=== PATIENT | male | born 1950 | race Caucasian/White ===

== ENCOUNTER 2020-02-15 16:46 | Inpatient (IN) | payer MEDICARE, OTHER, SELFPAY ==
[2020-02-15] VITALS (11 sets, daily range): BP systolic 131–191; BP diastolic 79–102; PULSE 65–79; RESP 13–21; TEMP 35.4–36.7; O2SAT 96–100; BMI 28.3; BMI 27.8; BMI 27.9
[2020-02-15 16:55] LABS: Bedside Glucose 139 mg/dL (70-110)
--- NOTE | 2020-02-15 16:55 | CT_ITS ---
We are attempting to reach an attending provider to discuss findings. An addendum with communication details will be sent when the communication is complete. STUDY: CT BRAIN WITHOUT CONTRAST REASON FOR EXAM: Male, 69 years old. STROKE PROTOCAL -- LEFT SIDE WEAKNESS -- RECENT SHOULDER SURG RADIATION DOSAGE (If Supplied By Facility): CTDIvol = ( 44.99 ) mGy, DLP = ( 819.81 ) mGycm TECHNIQUE: Transaxial CT imaging of the brain was performed without administration of intravenous contrast material. Individualized dose optimization techniques were used for this CT. COMPARISON: No relevant priors. FINDINGS: Normal soft tissue structures. Normal calvarium. There is moderate cerebral atrophy with widening of the extra-axial spaces and ventricular dilatation. There are areas of decreased attenuation within the white matter tracts of the supratentorial brain, consistent with microvascular disease changes. Normal basal ganglia and thalami. Normal brainstem. Normal cerebellum. There is no intracranial hemorrhage. There are no findings of an acute ischemic infarction. Normal visualized paranasal sinuses. CT/Brain/Head without Contrast IMPRESSION: Chronic involutional changes of the brain. Electronically Signed: Sebastian Victoria MD at 17:19 EDT , Service support ,
--- NOTE | 2020-02-15 16:55 | CT_ITS ---
STUDY: CTA HEAD AND NECK WITH CONTRAST REASON FOR EXAM: Male, 69 years old. STROKE PROTOCAL -- LEFT SIDE WEAKNESS, RECENT SHOULDER SURG RADIATION DOSAGE (If Supplied By Facility): CTDIvol = ( 26.31 ) mGy, DLP = ( 819.81 ) mGycm TECHNIQUE: CT angiography was performed with a multi-detector CT scanner. Data acquisition was obtained from the skull base through the vertex following intravenous administration of 100CC ISOVUE 370. MIP images were reconstructed from the axial data set. Post-processing of the angiographic images was performed, with multiplanar reformation and 3D reconstruction. Individualized dose optimization techniques were used for this CT. COMPARISON: Noncontrast CT brain from today FINDINGS: Normal bilateral petrous carotid arteries. Normal right cavernous carotid artery with a normal supraclinoid bifurcation. Normal left cavernous carotid artery with a normal supraclinoid bifurcation. Normal right A1 segments of the anterior cerebral artery. Normal left A1 segments of the anterior cerebral artery. Normal intact anterior communicating artery (ACOM). Normal bilateral A2 segments of the anterior cerebral arteries. Normal right M1 and M2 segments of the middle cerebral arteries, with a normal M1 bifurcation. Normal left M1 and M2 segments of the middle cerebral arteries, with a normal M1 bifurcation. There is non-visualization of the right posterior communicating artery (PCOM). There is non-visualization of the left posterior communicating artery (PCOM). Normal bilateral vertebral arteries. Normal basilar artery with a normal basilar bifurcation. The visualized bilateral superior cerebellar (SCA) arteries are normal. Normal bilateral P1, P2 and visualized P3 segments of the posterior cerebral arteries. There is no demonstrated aneurysm of the [place]. There is no demonstrated abnormality of the visualized brain. AORTIC ARCH: Normal visualized aortic arch. Normal origins of the brachiocephalic, left common carotid, and left subclavian arteries. RIGHT CAROTID ARTERIES: Normal right common carotid artery (CCA). Normal right common carotid bulb. Normal origin of the right internal carotid (ICA) artery without a hemodynamically significant stenosis. Normal visualized cervical portion of the right internal carotid artery. Normal origin of the right external carotid artery (ECA). LEFT CAROTID ARTERIES: Normal left common carotid artery (CCA). Normal left common carotid bulb. Normal origin of the left internal carotid (ICA) artery without a hemodynamically significant stenosis. Normal visualized cervical portion of the left internal carotid artery. Normal origin of the left external carotid artery (ECA). VERTEBRAL ARTERIES: Normal bilateral vertebral arteries. CT/CTA Head AND Neck W/ Contrast IMPRESSION: Normal CTA Head and neck with contrast. N.B. : The above information has been verbally conveyed by Sebastian Victoria MD to Dr. Donny Mullins DO, on 02/15/2020 17:31:04 (ET). Electronically Signed: Sebastian Victoria MD at 17:32 EDT , Service support ,
--- NOTE | 2020-02-15 17:08 | CM.ED ---
SOCIAL WORK Responded to Stroke Alert. Patient in room with Dr. Mullins. This worker to remain available for needs. Shanna Aguilera, MORTGAGE LENDER, FLOOR DIRECTOR
--- NOTE | 2020-02-15 17:18 | EKG12_ITS ---
Test Reason : STROKE ALERT Blood Pressure : / mmHG Vent. Rate : 068 BPM Atrial Rate : 068 BPM P-R Int : 336 ms QRS Dur : 090 ms QT Int : 400 ms P-R-T Axes : 058 -43 018 degrees QTc Int : 425 ms Sinus rhythm with 1st degree A-V block Left axis deviation Low voltage QRS Septal infarct , age undetermined Abnormal ECG Confirmed by SAVI GONZALEZ, SUMA ([id number]), senior technical editor NEETA GUTHRIE ([id number]) on 02/18/2020 9:29:40 AM Referred By: IZZY Confirmed By:SUMA HOU MD
[2020-02-15 17:30] LABS: Absolute Lymphocyte Count 2.45 X10^3/uL (0.83-4.51); Absolute Neutrophil Count 4.8 X10^3/uL (2.0-7.7); Basophil# 0.03 X10^3/uL; Basophil% 0.4 % (0-1); Eosinophil# 0.58 X10^3/uL; Eosinophils% 6.8 % (0-5); Hematocrit 38.6 % (40-54); Hemoglobin 12.6 g/dL (13.0-16.5); Lymphocyte # 2.45 X10^3/ul (4.0); Lymphocyte % 28.9 % (19-41); Mean Corp Hgb Conc 32.6 g/dL (32-36); Mean Corpuscular Hgb 31.7 pg (27.0-32.0); Mean Platelet Vol. 9.7 fl (6.2-12.0); Monocyte# 0.65 X10^3/uL; Monocyte% 7.7 % (0-10); NRBC Flagged by Analyzer 0 % (0-5); Neutrophil # 4.75 X10^3/uL (2.7-7.7); Platelet Count 287 K/mm3 (150-450); RBC Distribution Width CV 12.5 % (11.6-14.6); RBC Distribution Width SD 43.9 fl (35.1-43.9); Red Blood Count 3.98 M/mm3 (4.6-6.2); White Blood Count 8.5 K/mm3 (4.4-11.0)
--- NOTE | 2020-02-15 17:30 | RAD_ITS ---
STUDY: X-RAY CHEST REASON FOR EXAM: Male, 69 years old. SLURRED SPEECH AT 1530, WEAKNESS TECHNIQUE: Single frontal view of the chest. COMPARISON: None. FINDINGS: The lungs are clear and expanded. There is no demonstrated pleural abnormality. Normal size heart. Normal mediastinum and tina. Normal visualized pulmonary arteries. Normal visualized aortic arch and descending thoracic aorta. Normal visualized thoracic spine. Normal visualized ribs, clavicles, and shoulders. 2 metallic screws transfix the left glenoid. There is no demonstrated abnormality of the visualized soft tissue structures of the upper abdomen. RAD/Chest 1 View IMPRESSION: Normal x-ray examination of the chest. Electronically Signed: Sebastian Victoria MD at 18:26 EDT , Service support ,
[2020-02-15 17:34] LABS: International Normalized Ratio 1.1; Prothrombin Time (Protime)PT. 13.9 SECONDS (11.7-14.9)
[2020-02-15 17:35] LABS: Partial Thromboplast Time 24.8 Seconds (24.1-36.2)
[2020-02-15 17:40] LABS: Anion Gap 5 (5-15); BUN 13 mg/dL (7-18); BUN/Creat Ratio 13.3 RATIO (10-20); Calcium,Total 9.2 mg/dL (8.5-10.1); Chloride 111 mmol/L (98-107); Creatinine, Serum 0.98 mg/dL (0.70-1.30); EST Glomerular Filtration Rate 81 mL/min (>60); Est Glom Filt Rate - Afr Amer 98 mL/min (>60); Estimated Creatinine Clearance 88.57 ml/min; Glucose 145 mg/dL (74-106); Potassium 3.8 mmol/L (3.5-5.1); Sodium Level 141 mmol/L (136-145)
--- NOTE | 2020-02-15 17:54 | ED.VISSUMM ---
- ER Visit Summary Date of Service: 02/15/20 Chief Complaint: Slurred speech History of Present Illness: The patient is a 69 M who presents with slurred speech that began today. Patient noticed his speech getting slurred approximately 1-1/2 hours prior to arrival. Patient denies any weakness or paresthesias in his extremities. Patient denies any difficulty walking. Patient does admit to a decreased appetite but denies any nausea or vomiting. Patient denies any headache or chest pain. Patient denies any difficulty swallowing. Physical Examination: Vital signs are stable except for an elevated blood pressure of 191/102.. Patient is afebrile. Patient is in no acute distress. Oral mucosa is pink and moist. Neck is supple. Trachea is midline. There is no JVD. Heart was regular rate and rhythm. Lungs are clear and equal bilaterally. Abdomen is soft and nontender. Strength is 5/5 bilateral in the upper and lower extremities. [id number] is intact. Other than slurring of his speech, cranial nerves II through XII are intact. Extremities are intact. There is no calf tenderness or edema. Test Results: CT scan of the brain was obtained and was within normal limits. CTA of the head neck was obtained and was within normal limits. Portable chest x-ray was obtained. There is no acute cardiopulmonary process. These were interpreted by the radiologist and reviewed by myself. CBC and basic metabolic profile within normal limits. PT with INR and PTT were normal. Troponin was normal. Emergency Department Course and Treatment: Stroke neurologist from [facility], Dr. Krause evaluated the patient remotely. She did not recommend TPA due to the mild deficits. She did recommended admission to the hospital for further evaluation. Blood pressure improved without medication. Case was discussed with the hospitalist. She will admit the patient to her service. Patient and spouse understood and were agreeable with the plan. All questions were answered. Disposition: Admit to hospital Impression: 1. Acute stroke This note was generated with [employer] dictation software. It may contain incorrect words, spelling, and punctuation that were not noted in review of the chart prior to signing ED Disposition - Plan for ED Patient: Disposition: Acute Care Hospital [facility] Diagnosis: Stroke Referrals: Caitlin Landaverde MD [Primary Care Provider] -
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
--- NOTE | 2020-02-15 19:30 | TELEMED_ITS ---
[facility] Telemed has confirmed receipt of a request for visit. This document confirms receipt of the order initiating the consult. To find the results of the consultation, please view the patient's reports for the scanned Telemed Consult.
[2020-02-15] MEDS: Atorvastatin Calcium 80 MG Tablet PO (21:26)
[2020-02-16] VITALS (11 sets, daily range): BP systolic 130–154; BP diastolic 73–84; PULSE 61–77; RESP 10–18; TEMP 36.4–36.9; O2SAT 95–100; BMI 27.8
--- NOTE | 2020-02-16 08:00 | MRI_ITS ---
STUDY: MRI BRAIN WITHOUT CONTRAST REASON FOR EXAM: Male, 69 years old. stroke, slurred speech TECHNIQUE: Standardized multiplanar fat and water weighted pulse sequences were obtained. COMPARISON: CT 02/15/2020 FINDINGS: There is moderate cerebral atrophy with widening of the extra-axial spaces and ventricular dilatation. There are multiple white matter hyperintensities, distributed throughout the deep white matter tracts of the cerebral hemispheres, consistent with moderate chronic white matter ischemic changes. There is no evidence for recent intracranial ischemia or other cause of cytotoxic edema on diffusion weighted imaging (DWI). Normal T2* images of the brain without demonstrated susceptibility artifact. There is no demonstrated hemosiderin stain. Normal bilateral basal ganglia. Normal thalami. There is no extra-axial fluid accumulation. Normal flow voids within the major intracranial circulation suggesting patency by spin echo criteria. Normal sella turcica, pituitary gland, infundibular stalk, optic chiasm and hypothalamus. Normal tectal plate and pineal gland. Normal midbrain, gio and medulla. Normal cerebellum. Normal basal cisterns. Normal bilateral temporal bones. Normal bilateral internal auditory canals. No demonstrated orbital abnormality, within the constraints of a routine brain study. Normal visualized paranasal sinuses. Normal calvarium and skull base. Normal visualized soft tissue structures. Normal visualized upper cervical spine. MRI/Brain without Contrast IMPRESSION: Involutional changes of the brain, as described above. No acute infarct. Electronically Signed: Taiwo Serrano MD at 11:54 EDT Tel , Service support ,
[2020-02-16] MEDS: Aspirin 81 MG TAB.CHEW PO (09:26)
[2020-02-16] MEDS: FLUoxetine 20 MG Capsule 40 MG PO (09:26)
[2020-02-16] MEDS: Psyllium 1 PACKET PO (09:26)
[2020-02-16] MEDS: Loratadine 10 MG Tablet PO (09:26)
[2020-02-16] MEDS: Lisinopril 10 MG Tablet PO (09:27)
--- NOTE | 2020-02-16 11:13 | PN_ITS ---
Patient Problems: Active and Suspected Problems Stroke (Acute) Subjective: Patient seen and examined. He had an uneventful night and thinks his speech is actually getting better. He denies any focal weakness or numbness, tingling, nausea vomiting or diarrhea. Review of systems otherwise negative. Labs and vitals reviewed. Vitals/I&O's: Vital Signs Temp Pulse Resp BP Pulse Ox 97.8 F 64 10 L 130/74 H 95 02/16/20 06:55 02/16/20 07:00 02/16/20 06:55 02/16/20 06:55 02/16/20 06:55 Oxygen Delivery Method Room Air Weight: 229 lb 4.492 oz Body Mass Index (BMI) 27.8 Finger Stick Blood Glucose 139 Intake and Output for Last 24 Hours 02/14/20 02/15/20 02/16/20 23:59 23:59 23:59 Intake Total 240 / 240 280 / 280 Balance 240 / 240 280 / 280 General: Alert, Oriented x3, Cooperative, Lethargic HEENT: Atraumatic, PERRLA, EOMI, Normocephalic Oral: Dry Mucosa Neck: Supple, No JVD, Negative Carotid Bruits Lungs: Clear to auscultation, Normal air movement, No rhonchi, No wheeze, No rales Cardiovascular: Regular rate, Regular Rhythm, Normal S1, Normal S2, No murmurs Abdomen: Bowel Sounds Present, Soft, Non Tender, Non-Distended, No Hepato- splenomegaly Extremities: No clubbing, No cyanosis, No edema, Capillary Refill Less than 3 Seconds, RUE in sling Skin: No rashes, No breakdown Musculoskeletal: No Tenderness to Palpation of Joints or Extremities Lymphatic: No Cervical, Supraclavicular, or Inguinal Adenopathy Neurological: - - slurred speech has improved markedly, NIHSS-0 Psych/Mental Status: Normal Affect, Alert and oriented to time, place, person, mood and affect Laboratory Results 02/15/20 16:51: POC Glucose 139 H 02/15/20 16:55: WBC 8.5, RBC 3.98 L, Hgb 12.6 L, Hct 38.6 L, MCV 97.0 H, MCH 31.7, MCHC 32.6, RDW Std Deviation 43.9, RDW Coeff of Carlo 12.5, Plt Count 287, MPV 9.7, Immature Gran % (Auto) 0.200, Neut % (Auto) 56.0, Lymph % (Auto) 28.9, [place] % (Auto) 7.7, Eos % (Auto) 6.8 H, Baso % (Auto) 0.4, Absolute Neuts (auto) 4.8, Absolute Lymphs (auto) 2.45, Nucleated RBC % 0 02/15/20 16:55: PT 13.9, INR 1.1, APTT 24.8 02/15/20 16:55: Sodium 141, Potassium 3.8, Chloride 111 H, Carbon Dioxide 25.0, Anion Gap 5, BUN 13, Creatinine 0.98, Estim Creat Clear Calc 88.57, Est GFR (MDRD) Af Amer 98, Est GFR (MDRD) Non-Af 81, BUN/Creatinine Ratio 13.3, Glucose 145 H, Calcium 9.2, Troponin I < 0.[address] 02/15/20 16:55 IMPRESSION: Chronic involutional changes of the brain. Electronically Signed: Sebastian Victoria MD at 17:19 EDT , Service support , ADDENDUM: 02/15/20 1733 IMPRESSION: Chronic involutional changes of the brain. N.B. : The above information has been verbally conveyed by Sebastian Victoria MD to Dr. Donny Mullins DO, on 02/15/2020 17:26:03 (ET). Electronically Signed: Sebastian Victoria MD at 17:19 EDT , Service support , Head/Neck CTA 02/15/20 16:55 IMPRESSION: Normal CTA Head and neck with contrast. N.B. : The above information has been verbally conveyed by Sebastian Victoria MD to Dr. Donny Mullins DO, on 02/15/2020 17:31:04 (ET). Electronically Signed: Sebastian Victoria MD at 17:32 EDT , Service support , ADDENDUM: 02/15/20 1739 IMPRESSION: Normal CTA Head and neck with contrast. N.B. : The above information has been verbally conveyed by Sebastian Victoria MD to Dr. Donny Mullins DO, on 02/15/2020 17:31:04 (ET). Electronically Signed: Sebastian Victoria MD at 17:32 EDT , Service support , Chest X-Ray 02/15/20 17:30 IMPRESSION: Normal x-ray examination of the chest. Electronically Signed: Sebastian Victoria MD at 18:26 EDT , Service support , Current Medications Aspirin (Aspirin, Baby) 81 mg PO DAILY@0800 [facility] Last Admin: 02/16/20 09:26 Dose: 81 mg Documented by: Atorvastatin Calcium (Lipitor) 80 mg PO QHS [facility] Last Admin: 02/15/20 21:26 Dose: 80 mg Documented by: Dextrose (D50w Syringe) 0 gm IV X1 PRN; Protocol PRN Reason: Hypoglycemia Fluoxetine HCl (Prozac) 40 mg PO DAILY [facility] Last Admin: 02/16/20 09:26 Dose: 40 mg Documented by: Glucagon () 1 mg IM .X1 PRN PRN Reason: Hypoglycemia Hydralazine HCl (Apresoline Iv) 5 mg IV Q30M PRN PRN Reason: to maintain BP goals Sodium Chloride () 250 mls @ 15 mls/hr IV .[id number] PRN PRN Reason: Saline Flush Sodium Chloride () 250 mls @ 15 mls/hr IV .[id number] PRN PRN Reason: Additional IVPB Infusion Insulin Human Lispro (Humalog Kwikpen (Bkc)) 0 unit SC [facility]; Protocol Labetalol HCl (Trandate) 20 mg IV X1 PRN PRN Reason: BLOOD PRESSURE Labetalol HCl (Trandate) 10 - 20 mg IV Q10M PRN PRN PRN Reason: to Maintain BP Goals Lisinopril (Zestril) 10 mg PO DAILY [facility] Last Admin: 02/16/20 09:27 Dose: 10 mg Documented by: Loratadine (Claritin) 10 mg PO DAILY [facility] Last Admin: 02/16/20 09:26 Dose: 10 mg Documented by: Oxycodone HCl (Oxyir) 5 - 10 mg PO Q4H PRN PRN PRN Reason: Pain Score 4-10/10 Psyllium Hydrophilic Mucilloid (Metamucil) 1 packet PO DAILY [facility] Last Admin: 02/16/20 09:26 Dose: 1 packet Documented by: Sodium Chloride () 10 - 40 ml IV UD PRN PRN Reason: SALINE FLUSH Medical Necessity - Tobacco Use Smoking Status: Never smoker Tobacco Use: Non-smoker Assessment/Plan All Active Problems Stroke (Acute) 69 y/o male admitted with a complaint of slurred speech # Acute CVA * slurred speech is much better today * NIHSS- 0 today * on PO aspirin 81mg daily and PO atorvastatin 80mg daily * MRI of the brain done and reading is pending * PT/OT consult * fall precautions * neurology consulted- await rec;s * 2D echo to be done tomorrow * A1C done day before admission at his PCP's. Patient prefers to get the results from his PCP rather than repeat it here * # Diabetes mellitus * metformin and sitagliptin on hold. * ISS. Accuchecks ACHS * #hypertension: hold lisinopril to allow permissive hypertension. To resume BP meds tomorrow for target BP of <130/80 #Hyperlipidemia: high intensity statin. # DVT prophylaxis:SCDs Code status: full code * OBSV E&M: 54174 Subsequent observation care L2
[2020-02-16 12:21] LABS: Bedside Glucose 193 mg/dL (70-110)
[2020-02-16] MEDS: Insulin Lispro 100 UNIT/ML INSULN.PEN SC (12:22)
[2020-02-16 17:30] LABS: Bedside Glucose 111 mg/dL (70-110)
[2020-02-16] MEDS: Atorvastatin Calcium 80 MG Tablet PO (21:13)
[2020-02-16] MEDS: oxyCODONE 5 MG Tablet PO (21:14)
[2020-02-16 21:50] LABS: Bedside Glucose 126 mg/dL (70-110)
[2020-02-17] VITALS (7 sets, daily range): BP systolic 130–152; BP diastolic 69–80; PULSE 61–94; RESP 10–17; TEMP 36.5–36.8; O2SAT 95–100; BMI 27.8
[2020-02-17 05:42] LABS: Absolute Lymphocyte Count 2.34 X10^3/uL (0.83-4.51); Absolute Neutrophil Count 4.2 X10^3/uL (2.0-7.7); Basophil# 0.03 X10^3/uL; Basophil% 0.4 % (0-1); Eosinophil# 0.55 X10^3/uL; Eosinophils% 6.9 % (0-5); Hematocrit 36.1 % (40-54); Hemoglobin 12.1 g/dL (13.0-16.5); Lymphocyte # 2.34 X10^3/ul (4.0); Lymphocyte % 29.3 % (19-41); Mean Corp Hgb Conc 33.5 g/dL (32-36); Mean Corpuscular Hgb 31.9 pg (27.0-32.0); Mean Corpuscular Volume 95.3 fL (80-94); Mean Platelet Vol. 9.5 fl (6.2-12.0); Monocyte# 0.83 X10^3/uL; Monocyte% 10.4 % (0-10); NRBC Flagged by Analyzer 0 % (0-5); Neutrophil # 4.21 X10^3/uL (2.7-7.7); Neutrophil % 52.6 % (47-70); Platelet Count 240 K/mm3 (150-450); RBC Distribution Width CV 12.3 % (11.6-14.6); Red Blood Count 3.79 M/mm3 (4.6-6.2)
[2020-02-17 05:53] LABS: Anion Gap 5 (5-15); BUN 9 mg/dL (7-18); BUN/Creat Ratio 9.6 RATIO (10-20); Calcium,Total 8.8 mg/dL (8.5-10.1); Chloride 110 mmol/L (98-107); Cholesterol 106 mg/dL (200); Creatinine, Serum 0.94 mg/dL (0.70-1.30); EST Glomerular Filtration Rate 85 mL/min (>60); Est Glom Filt Rate - Afr Amer 102 mL/min (>60); Estimated Creatinine Clearance 92.34 ml/min; Glucose 114 mg/dL (74-106); High Density Lipoprotein 37 mg/dL; Potassium 3.7 mmol/L (3.5-5.1); Sodium Level 142 mmol/L (136-145); Triglycerides 70 mg/dL; Very Low Density Lipoprotein 14 mg/dL (5-40)
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
[2020-02-17 07:46] LABS: Bedside Glucose 128 mg/dL (70-110)
[2020-02-17 08:33] LABS: Erythrocyte Sedimentation Rate 4 mm/hr (0-20)
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
[2020-02-17] MEDS: Psyllium 1 PACKET PO (09:52)
[2020-02-17] MEDS: Aspirin 81 MG TAB.CHEW PO (09:52)
[2020-02-17] MEDS: Loratadine 10 MG Tablet PO (09:52)
[2020-02-17] MEDS: FLUoxetine 20 MG Capsule 40 MG PO (09:52)
[2020-02-17] MEDS: Lisinopril 10 MG Tablet PO (09:52)
--- NOTE | 2020-02-17 10:31 | DCINST_ITS ---
- Discharge Diagnoses Current Active Problems: Current Active and Chronic Problems Stroke (Acute) You will use the following diet at home:: Cardiac Your food should be the consistency of: Regular Your liquids should be the consistency of: Regular/Thin Discharge Activity: Return to Normal Activity Weight Bearing Status: Weight bearing as tolerated Call your doctor if you observe: Numbness or Tingling, Shortness of breath, Dizziness, Fainting spells Instructions: What Is a TIA? Additional Instructions: to have 30 day event monitor. To have outpatient PT/OT and speech therapy Allergies/Adverse Reactions: Allergies latex Allergy (Verified 02/15/20 19:54) Rash levofloxacin [From Levaquin] Allergy (Verified 02/15/20 17:04) PT UNABLE TO RESPOND-NEEDS F/U Medications to take at Discharge Cetirizine HCl [Zyrtec] 10 mg PO DAILY 02/15/20 Fluoxetine HCl 40 mg PO DAILY 02/15/20 Glimepiride 4 mg PO DAILY 02/15/20 Lisinopril [Prinivil] 10 mg PO DAILY 02/15/20 Metamucil DAILY 02/15/20 Metformin HCl 2,000 mg PO DAILY 02/15/20 Oxycodone HCl/Acetaminophen [Percocet 5-325] 1 - 2 tab PO Q4H PRN 02/15/20 Sitagliptin Phosphate [Januvia] 50 mg PO DAILY 02/15/20 Aspirin [Aspirin, Baby] 81 mg PO DAILY@0800 #30 tab.chew 02/17/20 Atorvastatin Calcium [Lipitor] 80 mg PO QHS #30 tab 02/17/20 The following prescriptions were given: Aspirin [Aspirin, Baby] 81 mg PO DAILY@0800 #30 tab.chew [facility] Status[facility] Atorvastatin Calcium [Lipitor] 80 mg PO QHS #30 tab Transmission Status: Received by [facility] Orders to be completed after discharge: 30-Day Event Recorder [[facility]] Location: None Selected Primary Care Physician: Caitlin Landaverde MD [Primary Care Provider] - Please follow up with your Primary Care Physician in: 1-2 weeks Test Results: Test results from this visit will be discussed in further detail at your follow- up appointment, if applicable. Please Follow Up With: Leonel Padilla MD When: 1-2 weeks for neurology review Proposed Discharge Date: 02/17/20
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
[2020-02-17] MEDS: Insulin Lispro 100 UNIT/ML INSULN.PEN SC (11:13)
--- NOTE | 2020-02-17 11:15 | PHA.DC.MC ---
Pharmacy Service has performed discharge medication reconciliation and counseling for this patient. 1. ASPIRIN 81MG PO DAILYCM The patient's discharge medication list was reviewed for discrepancies and discrepancies were resolved. Home Medications Cetirizine HCl [Zyrtec] 10 mg PO DAILY 02/15/20 Fluoxetine HCl 40 mg PO DAILY 02/15/20 Glimepiride 4 mg PO DAILY 02/15/20 Lisinopril [Prinivil] 10 mg PO DAILY 02/15/20 Metamucil DAILY 02/15/20 Metformin HCl 2,000 mg PO DAILY 02/15/20 Oxycodone HCl/Acetaminophen [Percocet 5-325] 1 - 2 tab PO Q4H PRN 02/15/20 Sitagliptin Phosphate [Januvia] 50 mg PO DAILY 02/15/20 Aspirin [Aspirin, Baby] 81 mg PO DAILY@0800 #30 tab.chew 02/17/20 Atorvastatin Calcium [Lipitor] 80 mg PO QHS #30 tab 02/17/20 The patient was counseled on the following discharge medications and changes in medications for homegoing were reviewed. The Reason for Use, instructions for use, and potential side effects were reviewed for all new medications. The patient's questions regarding all of their medications were answered. The patient was able to verbally demonstrate an understanding of their discharge medications. Patient counseled by pharmacy manager, Sole.
[2020-02-17 12:05] LABS: Bedside Glucose 266 mg/dL (70-110)
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
== END 2020-02-17 13:54 | disposition home or self-care (01) | DRG 69 ==
LOC: ED 18:30 → PCU 18:55
PROVIDERS: Admitting Provider Student in an Organized Health Care Education/Training Program; Emergency Provider Emergency Medicine; PCP Student in an Organized Health Care Education/Training Program; Visit Provider Student in an Organized Health Care Education/Training Program
DX: G45.9 Transient cerebral ischemic attack, unspecified (principal); R29.702 NIHSS score 2; Z79.84 Long term (current) use of oral hypoglycemic drugs; Z79.899 Other long term (current) drug therapy; I10 Essential (primary) hypertension; E78.5 Hyperlipidemia, unspecified
CPT/HCPCS: 36415; 70450; 70496; 70498; 70551; 71045; 80048; 80061; 82962; 84484; 85025; 85610; 85652; 85730; 92610; 93005; 93306; 94762; 97110; 97162; 97166; 97530; 97802; 99285; Q9957; Q9967; A4216; C8929

== ENCOUNTER 2020-05-20 19:05 | Inpatient (IN) | payer MEDICARE, OTHER, SELFPAY ==
[2020-02-17 10:40] VITALS: BMI 27.8
[2020-05-20 19:06] VITALS: PULSE 107; RESP 18; TEMP 36.1; O2SAT 97; BMI 24.7
--- NOTE | 2020-05-20 19:29 | EKG12_ITS ---
Test Reason : NEURO Blood Pressure : / mmHG Vent. Rate : 112 BPM Atrial Rate : 073 BPM P-R Int : 000 ms QRS Dur : 092 ms QT Int : 368 ms P-R-T Axes : 000 -41 262 degrees QTc Int : 502 ms Accelerated Junctional rhythm Left axis deviation Low voltage QRS Septal infarct , age undetermined ST & T wave abnormality, consider inferolateral ischemia Abnormal ECG Confirmed by SAVI GONZALEZ, SUMA ([id number]), newspaper managing editor NEETA GUTHRIE ([id number]) on 05/22/2020 11:11:58 AM Referred By: Christopher Sahni Confirmed By:SUMA HOU MD
--- NOTE | 2020-05-20 19:29 | CT_ITS ---
STUDY: CT FACIAL BONES WITHOUT CONTRAST REASON FOR EXAM: Male, 69 years old. PT FELL AND HAS BRUISING TO RIGHT EYE AND NACK PAIN. PT IS VERY CONFUSED AND AGITATED. BEST IMAGES POSSIBLE DUE TO PATIENT KEPT MOVING HEAD CT dated 02/15/2020 RADIATION DOSAGE (If Supplied By Facility): CTDIvol = ( 34.03 ) mGy, DLP = ( 3957.03 ) mGycm TECHNIQUE: The patient was scanned in a multi detector CT scanner. Sagittal and coronal images were reconstructed. Individualized dose optimization techniques were used for this CT. COMPARISON: None. FINDINGS: Motion artifact degrades anatomic detail. Normal soft tissue structures. Normal orbital parikh and orbital contents. Normal nasal bones and anterior nasal spine. Normal facial bones. There is no demonstrated fracture. There is minimal opacification of the paranasal sinuses consistent with a history of sinusitis. CT/Sinus/Facial Bone IMPRESSION: No acute osseous injury. Electronically Signed: Rasheeda Landry MD at 21:27 EST Tel , Service support ,
--- NOTE | 2020-05-20 19:29 | CT_ITS ---
STUDY: CT CERVICAL SPINE WITHOUT CONTRAST REASON FOR EXAM: Male, 69 years old. PT FELL AND HAS BRUISING TO RIGHT EYE AND NeCK PAIN. PT IS VERY CONFUSED AND AGITATED. BEST IMAGES POSSIBLE DUE TO PATIENT KEPT MOVING RADIATION DOSAGE (If Supplied By Facility): CTDIvol = ( 34.03 ) mGy, DLP = ( 3957.03 ) mGycm TECHNIQUE: High resolution transaxial imaging was performed without contrast material. Sagittal and coronal images were reconstructed. Individualized dose optimization techniques were used for this CT. COMPARISON: None FINDINGS: Motion artifact degrades anatomic detail. Normal craniovertebral junction. There are degenerative changes of the anterior atlantoaxial articulation. Normal odontoid process. Normal cervical lordosis. There is an indeterminate cortical defect within the spinous process of C6 that is only visualized on the axial images (image 84 series 8). C2-3: Normal endplates. Normal disc height and morphology. Normal central canal and intervertebral neuroforamina. C3-4: Normal endplates. Normal disc height and morphology. Normal central canal and intervertebral neuroforamina. C4-5: There is a posterior disc osteophyte. Normal central canal and intervertebral neuroforamina. C5-6: There is a posterior disc osteophyte associated with bilateral narrowing of the intervertebral neuroforamina. C6-7: There is a posterior disc osteophyte associated with bilateral narrowing of the intervertebral neuroforamina. C7-T1: Normal endplates. Normal disc height and morphology. Normal central canal and intervertebral neuroforamina. There are nonspecific groundglass opacities within the visualized left upper lung. There is a left pleural effusion as well. CT/Spine Cervical without Contras IMPRESSION: Multilevel degenerative changes, as described above. Groundglass opacities within the left upper lung may be secondary to underlying edema and/or an infectious process. Left pleural effusion. Indeterminate cortical defect of the C6 spinous process, may reflect an underlying fracture. Electronically Signed: Rasheeda Landry MD at 21:39 EST Tel , Service support ,
[2020-05-20] MEDS: LORazepam 2 MG/ML Syringe IM (19:30)
--- NOTE | 2020-05-20 19:30 | ED.VIS.GEN ---
History of Present Illness Chief Complaint: Alt LOC Narrative: Patient is a 69-year-old male who presents with agitation. Per records he has a history of diabetes, hypertension, hyperlipidemia, myasthenia gravis, recent pneumonia. Patient was recently admitted to this facility for TIA. It sounds like he was home and family is unable to care for him so they were doing an intake at a nursing facility today. He was agitated confused demanding to leave. They called the primary care physician who recommended the patient be sent here to the emergency department likely for geriatric psychiatric hospitalization. The patient complains of chest pain. He is also noted to have some bruising around his right eye. He states he fell into a wall. He cannot tell me exactly when this happened. He also complains of feeling short of breath and having some neck pain. Past Medical History - Allergies and Home Meds Allergies/Adverse Reactions: Allergies latex Allergy (Verified 05/20/20 19:10) Rash levofloxacin [From Levaquin] Allergy (Verified 05/20/20 19:10) PT UNABLE TO RESPOND-NEEDS F/U Quinolones Allergy (Verified 05/20/20 19:10) PT UNABLE TO RESPOND-NEEDS F/U Primary Care Physician: Caitlin Landaverde MD [Primary Care Provider] - Past Medical History: - - Diabetes, hypertension, hyperlipidemia, myasthenia gravis Surgical History: - - left shoulder surgery Smoking Status: Unknown if ever smoked - Family History Maternal Family History: Reports: Diabetes Paternal Family History: Reports: Diabetes, Stroke Review of Systems ROS: Unable to Obtain - Review of systems is limited due to the patient's confusion but he will answer some questions not all General: Denies: Fever Cardiovascular: Reports: Chest pain Respiratory: Reports: Dyspnea Physical Exam Vital Signs/Narrative: Vital Signs Temp Pulse Resp Pulse Ox 05/20/20 19:06 97 F L 107 H 18 97 Inital Vital Signs reviewed: Yes General: Well nourished, Well developed Head: - - Patient has right periorbital ecchymosis Eyes: Perrl, EOMI ENT: Moist mucous membranes Neck: - - Patient does have some cervical spinal tenderness no step-off Cardiovascular: Regular rhythm, Tachycardia Respiratory: No distress, CTA bilaterally Abdomen: Soft, Nontender Extremities: Nontender, - - Full range of motion x4 without any tenderness or pain with passive range of motion Skin: Normal color Neurological: Alert, - - Patient is oriented to self and place but not time he is confused/disoriented, he does not appear to have any focal or lateralizing neurological deficit, moving all 4 extremities Psychological: Agitated Diagnostic/Tx/Re-eval Impressions Cervical Spine CT 05/20/20 19:29 IMPRESSION: Multilevel degenerative changes, as described above. Groundglass opacities within the left upper lung may be secondary to underlying edema and/or an infectious process. Left pleural effusion. Indeterminate cortical defect of the C6 spinous process, may reflect an underlying fracture. Electronically Signed: Rasheeda Landry MD at 21:39 EST Tel , Service support , Facial/Sinus 05/20/20 19:29 IMPRESSION: No acute osseous injury. Electronically Signed: Rasheeda Landry MD at 21:27 EST Tel , Service support , Chest X-Ray 05/20/20 19:42 IMPRESSION: Bilateral patchy opacities concerning for multifocal pneumonia. Electronically Signed: Rasheeda Landry MD at 20:31 EST Tel , Service support , Brain CT 05/20/20 20:55 IMPRESSION: Chronic involutional changes of the brain. Small vessel ischemia. Electronically Signed: Rasheeda Landry MD at 21:23 EST Tel , Service support , 05/20/20 19:29 CT Cervical [Spine Cervical without Contras] [CT] Stat Sinus/Facial Bone [CT] Stat 05/20/20 19:42 Chest 1 View (Portable) [RAD] Stat 05/20/20 20:55 Brain/Head without Contrast [CT] Stat 05/20/20 21:15 Mucosa - Nose SARS-CoV-2 Antigen (Rapid) - Final Laboratory Results 11/25/20 11/25/20 11/25/20 19:36 19:36 20:12 WBC 7.3 RBC 3.24 L Hgb 10.3 L Hct 32.4 L MCV 100.0 H MCH 31.8 MCHC 31.8 L RDW Std Deviation 52.1 H RDW Coeff of Carlo 14.2 Plt Count 404 MPV 8.7 Immature Gran % (Auto) 1.100 H Neut % (Auto) 70.4 H Lymph % (Auto) 13.8 L [place] % (Auto) 11.9 H Eos % (Auto) 2.5 Baso % (Auto) 0.3 Absolute Neuts (auto) 5.2 Absolute Lymphs (auto) 1.01 Nucleated RBC % 0 Sodium 142 Potassium 3.5 Chloride 108 H Carbon Dioxide 26.0 Anion Gap 8 BUN 9 Creatinine 0.83 Estim Creat Clear Calc 93.49 Est GFR (MDRD) Af Amer 119 Est GFR (MDRD) Non-Af 98 BUN/Creatinine Ratio 10.9 Glucose 163 H Calcium 8.9 Total Bilirubin 0.60 AST 19 ALT 21 Alkaline Phosphatase 135 H Troponin I < 0.015 Total Protein 5.9 L Albumin 2.4 L Globulin 3.5 Albumin/Globulin Ratio 0.7 L Urine Color Yellow Urine Clarity Sl. Cloudy Urine pH 6.0 Ur Specific [place] 1.020 Urine Protein 30 H Urine Glucose (UA) Normal Urine Ketones 5 H Urine Occult Blood 50 H Urine Nitrite Negative Urine Bilirubin Negative Urine Urobilinogen 4 H Ur Leukocyte Esterase 25 H Urine RBC 10-25 SEEN Urine WBC 0-5 SEEN Ur Squamous Epith Cells 0 SEEN Urine Bacteria 0 SEEN Urine Mucus 2+ - Medical Decision Making Patient is agitated trying to get up out of bed. He was sedated with intramuscular Ativan. Patient remained agitated and we also gave intramuscular Haldol after he pulled out his IV. He was placed in soft restraints and a new IV was established and he is resting more comfortably on reevaluation. EKG shows atrial fibrillation at a rate of 112. His chest x-ray shows patchy bilateral infiltrates. Patient was treated with IV Rocephin and azithromycin. CT of the of the head, facial bones, cervical spine were obtained. This shows a possible spinous process fracture of C6. Additionally on the CT the C-spine he did note groundglass left upper lobe lung opacities. I spoke to family. Apparently patient has had chronic similar findings on his chest imaging. He has been treated multiple times for IV pneumonia. He has not had any recent fever or cough. He is not hypoxic. Family states that on his last hospitalization she was told by the physician that this was likely related to scarring rather than an acute infection. I did speak to Dr. Pizano regarding the CT the C-spine. She requested that we obtain an MRI tonight for further evaluation. Patient will be signed out to the oncoming physician to follow-up on this study. ED Disposition - Plan for ED Patient: Diagnosis: Delirium, Cervical spine fracture Referrals: Caitlin Landaverde MD [Primary Care Provider] -
--- NOTE | 2020-05-20 19:42 | RAD_ITS ---
STUDY: X-RAY CHEST REASON FOR EXAM: Male, 69 years old. Agitation and confusion TECHNIQUE: 2 frontal images of the the chest. COMPARISON: 02/15/2020 FINDINGS: There are new opacities within the left mid and lower and right lower lung. Normal size heart. Normal mediastinum and tina. Normal visualized pulmonary arteries. Normal visualized aortic arch and descending thoracic aorta. Normal visualized thoracic spine. There are screws traversing the right scapula. There is no demonstrated abnormality of the visualized soft tissue structures of the upper abdomen. RAD/Chest 1 View (Portable) IMPRESSION: Bilateral patchy opacities concerning for multifocal pneumonia. Electronically Signed: Rasheeda Landry MD at 20:31 EST Tel , Service support ,
[2020-05-20 19:44] LABS: Absolute Lymphocyte Count 1.01 X10^3/uL (0.83-4.51); Absolute Neutrophil Count 5.2 X10^3/uL (2.0-7.7); Basophil# 0.02 X10^3/uL; Basophil% 0.3 % (0-1); Eosinophil# 0.18 X10^3/uL; Eosinophils% 2.5 % (0-5); Hematocrit 32.4 % (40-54); Hemoglobin 10.3 g/dL (13.0-16.5); Lymphocyte # 1.01 X10^3/ul (4.0); Lymphocyte % 13.8 % (19-41); Mean Corp Hgb Conc 31.8 g/dL (32-36); Mean Corpuscular Hgb 31.8 pg (27.0-32.0); Mean Platelet Vol. 8.7 fl (6.2-12.0); Monocyte# 0.87 X10^3/uL; Monocyte% 11.9 % (0-10); NRBC Flagged by Analyzer 0 % (0-5); Neutrophil # 5.16 X10^3/uL (2.7-7.7); Neutrophil % 70.4 % (47-70); Platelet Count 404 K/mm3 (150-450); RBC Distribution Width CV 14.2 % (11.6-14.6); RBC Distribution Width SD 52.1 fl (35.1-43.9); Red Blood Count 3.24 M/mm3 (4.6-6.2); White Blood Count 7.3 K/mm3 (4.4-11.0)
[2020-05-20 19:46] VITALS: BP 107/70; PULSE 95; RESP 18
--- NOTE | 2020-05-20 19:50 | ED.RN ---
Pt removed IV, became agitated, requiring several staff members to assist back to bed.
[2020-05-20] MEDS: Haloperidol Lactate 5 MG/ML Vial 2 MG IM (19:53)
[2020-05-20 20:03] LABS: ALB/GLOB Ratio 0.7 RATIO (0.9-2.4); AST(SGOT) 19 U/L (15-37); Alanine Aminotransfer ALT/SGPT 21 U/L (16-61); Albumin, Serum 2.4 g/dL (3.2-5.0); Alkaline Phosphatase 135 U/L (45-117); Anion Gap 8 (5-15); BUN 9 mg/dL (7-18); BUN/Creat Ratio 10.9 RATIO (10-20); Calcium,Total 8.9 mg/dL (8.5-10.1); Chloride 108 mmol/L (98-107); Creatinine, Serum 0.83 mg/dL (0.70-1.30); EST Glomerular Filtration Rate 98 mL/min (>60); Est Glom Filt Rate - Afr Amer 119 mL/min (>60); Estimated Creatinine Clearance 93.49 ml/min; Globulin 3.5 g/dL (2.2-4.2); Glucose 163 mg/dL (74-106); Potassium 3.5 mmol/L (3.5-5.1); Protein, Total 5.9 g/dL (6.4-8.2); Sodium Level 142 mmol/L (136-145)
[2020-05-20 20:18] LABS: Bacteria 0 SEEN /hpf (None Seen); Squamous Epithelial Cells - UA 0 SEEN /hpf (0-5)
[2020-05-20 20:19] LABS: Color, Urine Yellow (Yellow); Glucose, Dipstick Normal (Normal); Ketone-Dipstick 5 mg/dl (Negative); Leukocyte Esterase-Dipstick 25 /ul (Negative); Nitrite-Dipstick Negative (Negative); Occult Blood-Urine 50 /ul (Negative); Protein-Dipstick 30 mg/dl (Negative); Urine Bilirubin Dipstick Negative (Negative); Urine Clarity Sl. Cloudy (Clear); Urine Urobilinogen 4 mg/dl (Normal)
[2020-05-20 20:39] LABS: Red Blood Cells-Urine 10-25 SEEN /hpf (0-5)
[2020-05-20 20:40] LABS: White Blood Cells 0-5 SEEN /hpf (0-5)
[2020-05-20 20:41] LABS: Mucous, Urine 2+ /hpf (<or=2+)
--- NOTE | 2020-05-20 20:55 | CT_ITS ---
STUDY: CT BRAIN WITHOUT CONTRAST REASON FOR EXAM: Male, 69 years old. PT FELL AND HAS BRUISING TO RIGHT EYE AND NECK PAIN. PT IS VERY CONFUSED AND AGITATED. BEST IMAGES POSSIBLE DUE TO PATIENT KEPT MOVING. RADIATION DOSAGE (If Supplied By Facility): CTDIvol = ( 34.03 ) mGy, DLP = ( 3957.03 ) mGycm TECHNIQUE: Transaxial CT imaging of the brain was performed without administration of intravenous contrast material. Individualized dose optimization techniques were used for this CT. COMPARISON: 02/15/2020 FINDINGS: Normal soft tissue structures. Normal calvarium. There is mild cerebral atrophy with widening of the extra-axial spaces and ventricular dilatation. There are areas of decreased attenuation within the white matter tracts of the supratentorial brain, consistent with microvascular disease changes. Normal basal ganglia and thalami. Normal brainstem. Normal cerebellum. There is no intracranial hemorrhage. There are no findings of an acute ischemic infarction. Normal visualized paranasal sinuses. CT/Brain/Head without Contrast IMPRESSION: Chronic involutional changes of the brain. Small vessel ischemia. Electronically Signed: Rasheeda Landry MD at 21:23 EST Tel , Service support ,
[2020-05-20] MEDS: Ceftriaxone 1 GM/50 ML BAG IV (21:24)
[2020-05-20 21:25] VITALS: BP 139/101; PULSE 112; RESP 16
--- NOTE | 2020-05-20 21:59 | PCM.HP.STD ---
Problem List (1) Adult failure to thrive Status: Acute (2) Delirium Status: Chronic (3) Cervical spine fracture Status: Inactive (4) Cervical spine fracture Status: Inactive (5) Stroke Status: Inactive History of Present Illness Date of Admission: 05/21/20 Chief Complaint: Agitation Patient was seen and examined on 05/21/2020 at 0400. Patient is a 69-year-old male with a significant history of hyperlipidemia, hypertension and diabetes mellitus who presented with agitation. Patient was admitted to our hospital ([facility]) on 02/15/2020 with TIA and discharged on 02/17/2020. Patient was discharged home. However because of family could not take care of patient, he was sent to [facility] for intake process. While at intake patient was noted to be severely agitated and confused. Patient PCP Dr. Iverson was called and he recommended patient be sent to the emergency department for possible [facility] placement. At emergent department cervical spine showed an indeterminate C6 spinous process defect. A follow-up MRI showed mild compression fracture in T3 and T4. The plan was to send patient to [facility]. However placement could not be found for patient so a decision was made to admit patient. At emergent department patient received Multiple doses of Ativan and haloperidol as patient was severely agitated. Soft restraints were applied. Of note 3 months ago patient was evaluated for myasthenia gravis at outside hospital. His spent 8 days in the ICU. Reportedly he developed ICU delirium. He self extubated and aspirated his tube feeding. Ever since patient has remained confused. He has had a chest x-ray that showed opacities and has received antibiotics in the past. Eventually his chest x-ray opacities was considered as scarring. Past Medical History Past Medical History (Chronic Problems): Chronic Problems Delirium (Chronic) Allergies latex Allergy (Verified 05/20/20 19:10) Rash levofloxacin [From Levaquin] Allergy (Verified 05/20/20 19:10) PT UNABLE TO RESPOND-NEEDS F/U Quinolones Allergy (Verified 05/20/20 19:10) PT UNABLE TO RESPOND-NEEDS F/U Home Medications: Ambulatory Orders Medication Instructions Recorded Fluoxetine HCl 40 mg PO DAILY 02/15/20 Glimepiride 2 mg PO DAILY 02/15/20 Lisinopril [Prinivil] 10 mg PO DAILY 02/15/20 Metformin HCl 1,000 mg PO BID 02/15/20 ALPRAZolam [Xanax] 0.5 mg PO TID PRN PRN 05/21/20 Apixaban [Eliquis] 5 mg PO BID 05/21/20 Aspirin [Aspirin, Baby] 81 mg PO DAILY@0800 05/21/20 Atorvastatin Calcium [Lipitor] 80 mg PO QHS 05/21/20 Buspirone HCl 5 mg PO TID 05/21/20 Cholecalciferol (Vitamin D3) 1 tab PO DAILY 05/21/20 [Vitamin D3] Diclofenac Sodium [Voltaren] 2 gm TOPICAL TID 05/21/20 Docusate Sodium 100 mg PO BID PRN PRN 05/21/20 Famotidine 20 mg PO BID 05/21/20 Guaifenesin [Robitussin] 10 ml PO Q4H PRN PRN 05/21/20 Ipratropium/Albuterol Sulfate 3 ml INHALATION Q6HWA.RT 05/21/20 [Duoneb] Ketotifen Fumarate 1 drp EACH EYE BID 05/21/20 Lactobacillus Rhamnosus GG 1 ea PO BID 05/21/20 [Culturelle] Metoprolol Tartrate 25 mg PO BID 05/21/20 Mycophenolate Mofetil 500 mg PO BID 05/21/20 Potassium Chloride [K-Dur] 20 meq PO DAILY 05/21/20 Pyridostigmine [place] 30 mg PO BID 05/21/20 Thiamine HCl 100 mg PO DAILY 05/21/20 Surgical History: - - left shoulder surgery Psychiatric History: No pertinent psych hx Smoking Status: Unknown if ever smoked - *Family History Maternal History Items: Diabetes Paternal History Items: Diabetes, Stroke Review of Systems Unable to obtain accurate/complete ROS d/t: Confusion. Hx was obtained from ED doc who discussed case w pt's . VTE Information - Inpt Only VTE Present on Admission: No VTE Mechan Device Prophylaxis: None VTE Pharm Prophylaxis ordered?: Yes Patient Problems: Active and Suspected Problems Adult failure to thrive (Acute) - Physical Exam Vitals/I&O's: Vital Signs Temp Pulse Resp BP Pulse Ox 97 F L 112 H 16 139/101 H 97 05/20/20 19:06 05/20/20 21:25 05/20/20 21:25 05/20/20 21:25 05/20/20 19:06 Weight: 83 kg Body Mass Index (BMI) 24.7 Finger Stick Blood Glucose 139 General: Lethargic HEENT: PERRLA, EOMI, Normocephalic, - - Ecchymosis at right infraorbital area. Neck: Supple, No Nuchal Rigidity, Trachea Midline Lungs: Clear to auscultation, Normal air movement Cardiovascular: Regular rate, Normal S1, Normal S2, No murmurs Abdomen: Bowel Sounds Present, Soft, Non Tender Extremities: No edema, Capillary Refill Less than 3 Seconds Skin: No rashes, No breakdown Musculoskeletal: No Tenderness to Palpation of Joints or Extremities Neurological: - - lethargic; does not follow most commands to assess all cranial nerves. Psych/Mental Status: - - Lethargic Laboratory Results 05/20/20 19:36: WBC 7.3, RBC 3.24 L, Hgb 10.3 L, Hct 32.4 L, MCV 100.0 H, MCH 31.8, MCHC 31.8 L, RDW Std Deviation 52.1 H, RDW Coeff of Carlo 14.2, Plt Count 404, MPV 8.7, Immature Gran % (Auto) 1.100 H, Neut % (Auto) 70.4 H, Lymph % (Auto) 13.8 L, [place] % (Auto) 11.9 H, Eos % (Auto) 2.5, Baso % (Auto) 0.3, Absolute Neuts (auto) 5.2, Absolute Lymphs (auto) 1.01, Nucleated RBC % 0 05/20/20 19:36: Sodium 142, Potassium 3.5, Chloride 108 H, Carbon Dioxide 26.0, Anion Gap 8, BUN 9, Creatinine 0.83, Estim Creat Clear Calc 93.49, Est GFR (MDRD) Af Amer 119, Est GFR (MDRD) Non-Af 98, BUN/Creatinine Ratio 10.9, Glucose 163 H, Calcium 8.9, Total Bilirubin 0.60, AST 19, ALT 21, Alkaline Phosphatase 135 H, Troponin I < 0.015, Total Protein 5.9 L, Albumin 2.4 L, Globulin 3.5, Albumin/Globulin Ratio 0.7 L 05/20/20 20:12: Urine Color Yellow, Urine Clarity Sl. Cloudy, Urine pH 6.0, Ur Specific [place] 1.020, Urine Protein 30 H, Urine Glucose (UA) Normal, Urine Ketones 5 H, Urine Occult Blood 50 H, Urine Nitrite Negative, Urine Bilirubin Negative, Urine Urobilinogen 4 H, Ur Leukocyte Esterase 25 H, Urine RBC 10-25 SEEN, Urine WBC 0-5 SEEN, Ur Squamous Epith Cells 0 SEEN, Urine Bacteria 0 SEEN, Urine Mucus 2+ Assessment/Plan All Active Problems Adult failure to thrive (Acute) Adult failure to thrive secondary to neuropsychiatric impairments. Will check TSH and vitamin B-12. Brain CT does not show any acute pathology. Seroquel twice daily. Hold for sedation. Haldol IM as needed. Case management consult for placement. Diabetic mellitus Patient with mild hyperglycemia. Accu-Chek QA CHS with correction scale insulin ordered. C3 and C4 compression fracture Mild Tylenol as needed for pain DVT prophylaxis Subcutaneous Lovenox. Inpatient E&M: 15059 Init Hosp L2
--- NOTE | 2020-05-20 22:22 | MRI_ITS ---
STUDY: MRI CERVICAL SPINE WITHOUT CONTRAST REASON FOR EXAM: Male, 69 years old. possible fx, limited exam, patient confused, medicated , follow up to ct TECHNIQUE: Standardized fat and water weighted pulse sequences were obtained in the sagittal and axial planes. COMPARISON: None FINDINGS: Normal foramen magnum and brainstem-cervical cord junction. Normal craniovertebral junction. Normal anterior atlantoaxial articulation. Normal odontoid process. Normal cervical lordosis. Normal vertebral bodies and posterior osseous elements. C2-3: Normal endplates. Normal disc height, signal and morphology. Normal central canal and intervertebral neural foramina. C3-4: Endplate spondylosis. Central and paracentral disc bulge. Degenerative changes of the bilateral facet joints and uncovertebral joints. Mild narrowing of the central canal and the bilateral intervertebral neural foramina. C4-5: Endplate spondylosis. Central and paracentral disc bulge. Degenerative changes of the bilateral facet joints and uncovertebral joints. Mild narrowing of the central canal and moderate narrowing of the bilateral intervertebral neural foramina. C5-6: Endplate spondylosis. Central and paracentral disc bulge. Degenerative changes of the bilateral facet joints and uncovertebral joints. Moderate narrowing of the central canal and the bilateral intervertebral neural foramina. C6-7: Normal endplates. Normal disc height, signal and morphology. Normal central canal and intervertebral neural foramina. C7-T1: Normal endplates. Normal disc height, signal and morphology. Normal central canal and intervertebral neural foramina. Normal cervical cord. Normal visualized soft tissue structures. Mild compression fractures are noted in the upper part of the vertebral body of T3 and T4. MRI/Spine Cervical (Routine) IMPRESSION: Multilevel degenerative changes, as described above. Mild compression fractures are noted in the upper part of the vertebral body of T3 and T4. Electronically Signed: Jose Enrique Crowell, at 1:35 EST Tel , Service support ,
--- NOTE | 2020-05-20 22:50 | ED.RN ---
Came in to room to check on pt. Found right upper to appear swollen. Unable to flush IV or obtain Blood return. IV d/c'd. ED physician notified of findings. No redness noted, pt does not complain of pain; however pt is considerably confused. Restrains removed at this time as they seem to be causing increased agitation.
[2020-05-20 22:59] VITALS: BP 140/104; PULSE 105; RESP 16
[2020-05-20] MEDS: DiphenhydrAMINE 50 MG/ML Syringe 25 MG IV (23:33)
[2020-05-20] MEDS: Haloperidol Lactate 5 MG/ML Vial IM (23:34)
[2020-05-21] VITALS (11 sets, daily range): BP systolic 101–133; BP diastolic 56–88; PULSE 82–114; RESP 14–18; TEMP 36.6–36.7; O2SAT 94–100; BMI 23.2
[2020-05-21] MEDS: LORazepam 2 MG/ML Syringe IV (00:10)
[2020-05-21 06:26] LABS: Absolute Lymphocyte Count 1.36 X10^3/uL (0.83-4.51); Absolute Neutrophil Count 3.1 X10^3/uL (2.0-7.7); Basophil# 0.02 X10^3/uL; Basophil% 0.4 % (0-1); Eosinophil# 0.29 X10^3/uL; Eosinophils% 5.2 % (0-5); Hematocrit 30.1 % (40-54); Hemoglobin 9.6 g/dL (13.0-16.5); Lymphocyte # 1.36 X10^3/ul (4.0); Lymphocyte % 24.3 % (19-41); Mean Corp Hgb Conc 31.9 g/dL (32-36); Mean Corpuscular Hgb 32.1 pg (27.0-32.0); Mean Corpuscular Volume 100.7 fL (80-94); Mean Platelet Vol. 8.6 fl (6.2-12.0); Monocyte# 0.72 X10^3/uL; Monocyte% 12.9 % (0-10); NRBC Flagged by Analyzer 0.4 % (0-5); Neutrophil # 3.14 X10^3/uL (2.7-7.7); Neutrophil % 56.1 % (47-70); Platelet Count 375 K/mm3 (150-450); RBC Distribution Width CV 14.2 % (11.6-14.6); RBC Distribution Width SD 52.6 fl (35.1-43.9); Red Blood Count 2.99 M/mm3 (4.6-6.2); White Blood Count 5.6 K/mm3 (4.4-11.0)
[2020-05-21 06:41] LABS: Bedside Glucose 83 mg/dL (70-110)
[2020-05-21 07:00] LABS: Anion Gap 5 (5-15); BUN 9 mg/dL (7-18); BUN/Creat Ratio 14.6 RATIO (10-20); Calcium,Total 8.6 mg/dL (8.5-10.1); Chloride 110 mmol/L (98-107); Creatinine, Serum 0.62 mg/dL (0.70-1.30); EST Glomerular Filtration Rate 137 mL/min (>60); Est Glom Filt Rate - Afr Amer 166 mL/min (>60); Glucose 88 mg/dL (74-106); Sodium Level 144 mmol/L (136-145); Thyroid Stim Hormone (TSH) 3.59 uIU/mL (0.358-3.74)
[2020-05-21] MEDS: QUEtiapine 25 MG Tablet PO ×2 (10:50→21:08)
[2020-05-21] MEDS: Enoxaparin 40 MG/0.4 ML Syringe SC (10:50)
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
[2020-05-21 12:15] LABS: Bedside Glucose 109 mg/dL (70-110)
[2020-05-21] MEDS: busPIRone 5 MG Tablet PO ×2 (14:32→21:08)
[2020-05-21] MEDS: Pyridostigmine Bromide 60 MG Tablet 30 MG PO ×2 (15:39→21:08)
[2020-05-21 16:25] LABS: Bedside Glucose 106 mg/dL (70-110)
--- NOTE | 2020-05-21 19:38 | NURSING ---
This morning, Dr. Grimaldo called this nurse around 10am. He said that he spoke with ED doctor and was aware of the Consult but was in [place] for the holidays and to put a soft collar on the pt and keep it on him until patient follows up with him as an outpatient after leaving the hospital. Dr. Austin Grimaldo also wanted this nurse to Un Consult him. Whoever consulted me needs to un consult me. This nurse checked with [employer] supervisor properties, he is aware.
[2020-05-21] MEDS: APIXABAN 5 MG TABLET PO (21:10)
[2020-05-21] MEDS: Mycophenolate Mofetil 250 MG Capsule 500 MG PO (21:10)
[2020-05-21 22:31] LABS: Bedside Glucose 129 mg/dL (70-110)
[2020-05-21] MEDS: Haloperidol Lactate 5 MG/ML Vial 1 MG IM (23:47)
[2020-05-22] VITALS (19 sets, daily range): BP systolic 100–187; BP diastolic 60–105; PULSE 100–121; RESP 14–25; TEMP 36.3–36.8; O2SAT 94–100
[2020-05-22 00:20] LABS: Bedside Glucose 126 mg/dL (70-110)
--- NOTE | 2020-05-22 01:12 | NURSING ---
pt wont let RN put soft colllar on. pt agitated, was given haldol prn.
[2020-05-22] MEDS: Haloperidol Lactate 5 MG/ML Vial 1 MG IM ×3 (03:52→21:09)
[2020-05-22] MEDS: busPIRone 5 MG Tablet PO ×3 (06:08→22:07)
--- NOTE | 2020-05-22 06:54 | NURSING ---
spoke w/ on 05/21 pm and she said pt was advised not to get flu vaccine d/t he was on cellcept (per [facility] specialist)
[2020-05-22 07:00] LABS: Bedside Glucose 89 mg/dL (70-110)
--- NOTE | 2020-05-22 07:56 | NURSING ---
pt refusing to wear soft cervical collar
[2020-05-22] MEDS: Mycophenolate Mofetil 250 MG Capsule 500 MG PO ×2 (08:03→22:06)
[2020-05-22] MEDS: APIXABAN 5 MG TABLET PO ×2 (08:03→22:06)
[2020-05-22] MEDS: FLUoxetine 20 MG Capsule 40 MG PO (08:03)
[2020-05-22] MEDS: Pyridostigmine Bromide 60 MG Tablet 30 MG PO ×2 (08:04→22:05)
[2020-05-22] MEDS: QUEtiapine 25 MG Tablet PO (08:05)
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
[2020-05-22 12:17] LABS: Anion Gap 6 (5-15); BUN 8 mg/dL (7-18); BUN/Creat Ratio 12.5 RATIO (10-20); Calcium,Total 8.6 mg/dL (8.5-10.1); Chloride 108 mmol/L (98-107); Creatinine, Serum 0.64 mg/dL (0.70-1.30); EST Glomerular Filtration Rate 132 mL/min (>60); Est Glom Filt Rate - Afr Amer 160 mL/min (>60); Glucose 156 mg/dL (74-106); Potassium 3.5 mmol/L (3.5-5.1); Sodium Level 141 mmol/L (136-145)
[2020-05-22] MEDS: Acetaminophen 325 MG Tablet 650 MG PO (12:24)
--- NOTE | 2020-05-22 12:37 | NURSING ---
supervisor heat treating updated on pt sliding to floor and need for sitter
--- NOTE | 2020-05-22 12:45 | NURSING ---
Ed OSEI sitter at bedside
[2020-05-22 12:51] LABS: Bedside Glucose 156 mg/dL (70-110)
--- NOTE | 2020-05-22 12:51 | NURSING ---
pt lowered self from chair to floor and left wrist made contact w/ floor-reported to dr rosenbaum-will order x ray for left wrist pt c/o pain for back points to mid back between shoulder blades-hurts to touch pt recently given tylenol and offerred heating pad/ ice pt responds tylenol my ass! pt will feed self but had to remove knofe from tray because pt was trying to eat jello w/ knife no coughing exhibited during meal pt is back in bed and there is now a sitter at the bedside
--- NOTE | 2020-05-22 13:37 | CASEMGMT ---
Social Work SW spoke with Melva at Crisis. Melva states that Kendra at Crisis did complete assessment at 0300 today but was told pt was not medically cleared and Nelly from crisis called in at 0730 and was told pt was not yet medically cleared. RUTH explained that during rounds with physician at around 0900 physician stating pt is medically cleared for crisis consult. Melva states she does not need to complete new assessment but needs paperwork faxed and she will speak with pt again. Phone call transferred to pt room where RN will assist pt in receiving call from Crisis. Clinical information faxed. Stephanie Eason RN updated on above. Plan: Crisis evaluation for daniel psych placement BECCA Gabriel
--- NOTE | 2020-05-22 13:37 | NURSING ---
sitter at bedside w/pt
[2020-05-22 14:27] LABS: Vitamin B12 412 pg/mL (211-911)
[2020-05-22] MEDS: Ziprasidone IM 20 MG/ML VIAL IM (15:59)
--- NOTE | 2020-05-22 16:20 | NURSING ---
In ICU 3 w/REYNALDO cole RN and Dr. Diaz present
--- NOTE | 2020-05-22 16:20 | NURSING ---
called sandra and updated on pt transport to ICU and reasoning behind transport that it was for 1:1 nursing care
[2020-05-22 17:56] LABS: Bedside Glucose 111 mg/dL (70-110)
--- NOTE | 2020-05-22 21:19 | NURSING ---
PT GETTING INCREASINGLY AGITATED AND TRYING TO GET OUT OF BED. ASKS TO SPEAK TO DANYEL ON THE PHONE, BUT HE'S UNABLE TO PROVIDE A PHONE NUMBER TO REACH HER. ONLY CONTACT IN CHART IS HIS CHAR. CONTINUES TO ATTEMPT TO GET OUT OF BED. HALDOL GIVE FOR INCREASED AGITATION.
--- NOTE | 2020-05-22 21:20 | RAD_ITS ---
STUDY: X-RAY - LEFT WRIST REASON FOR EXAM: Male, 69 years old. FALL, L WRIST PAIN. TECHNIQUE: 2 view(s) of the wrist were obtained. COMPARISON: None. FINDINGS: Normal visualized distal radius and ulna. Normal radiocarpal articulation. Normal distal radioulnar articulation. Normal carpal bones. Normal carpal articulations. There is degenerative arthrosis of the carpometacarpal articulation of the thumb. Normal second through fifth carpometacarpal articulations. Normal visualized metacarpal bones. The soft tissue structures are unremarkable. RAD/Wrist 2 Views IMPRESSION: Negative for fracture. 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 Electronically Signed: Nika Schumacher MD at 22:13 EST , Service support ,
[2020-05-22] MEDS: Insulin Lispro 100 UNIT/ML INSULN.PEN SC (22:04)
[2020-05-22] MEDS: QUEtiapine 25 MG Tablet 50 MG PO (22:05)
[2020-05-22] MEDS: Menthol/Lanolin/Calamine/Znox 113 GM Tube 1 APPLIC TOPICAL (22:06)
[2020-05-22 23:10] LABS: Bedside Glucose 179 mg/dL (70-110)
[2020-05-23 02:00] VITALS: PULSE 118
[2020-05-23 03:00] VITALS: BP 125/69; PULSE 110; RESP 15; TEMP 36.4; O2SAT 94
[2020-05-23] MEDS: Haloperidol Lactate 5 MG/ML Vial 1 MG IM ×2 (06:27→15:19)
[2020-05-23 06:36] LABS: Bedside Glucose 130 mg/dL (70-110)
--- NOTE | 2020-05-23 06:41 | NURSING ---
PT UNCOOPERATIVE WITH CARE. AGITATED W/STAFF. BLADDER SCANNED FOR 594 ML, BUT REFUSES TO ATTEMPT TO URINATE. REFUSES ST CATH AND BEGAN GETTING ASSERTIVE W/STAFF. REFUSES AM MEDS. HALDOL GIVEN. WILL CONTINUE TO MONITOR.
--- NOTE | 2020-05-23 08:19 | NURSING ---
full assessment completed, pt very drowsy, but arousable. Not aggressive or combative at this time
[2020-05-23 08:22] VITALS: BP 143/85; PULSE 119; RESP 16; TEMP 36.2; O2SAT 97
[2020-05-23] MEDS: Mycophenolate Mofetil 250 MG Capsule 500 MG PO ×2 (11:10→21:33)
[2020-05-23] MEDS: APIXABAN 5 MG TABLET PO ×2 (11:11→21:33)
[2020-05-23] MEDS: Pyridostigmine Bromide 60 MG Tablet 30 MG PO ×2 (11:11→21:33)
[2020-05-23] MEDS: QUEtiapine 25 MG Tablet 50 MG PO (11:12)
[2020-05-23] MEDS: FLUoxetine 20 MG Capsule 40 MG PO (11:12)
[2020-05-23] MEDS: Insulin Lispro 100 UNIT/ML INSULN.PEN SC (11:20)
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
[2020-05-23 11:31] LABS: Bedside Glucose 174 mg/dL (70-110)
--- NOTE | 2020-05-23 12:43 | NURSING ---
report given to [facility] on MS3. notified of change to room 324
[2020-05-23 13:33] VITALS: BP 141/76; PULSE 117; RESP 17; TEMP 36.6; O2SAT 97
[2020-05-23] MEDS: busPIRone 5 MG Tablet PO ×2 (14:33→21:33)
[2020-05-23 16:45] LABS: Bedside Glucose 120 mg/dL (70-110)
[2020-05-23] MEDS: Ziprasidone IM 20 MG/ML VIAL IM (16:51)
[2020-05-23 17:39] VITALS: BP 122/73; PULSE 110; RESP 16; TEMP 36.5; O2SAT 97
[2020-05-23 20:39] VITALS: BP 145/95; PULSE 115; RESP 18; TEMP 36.5; O2SAT 98
[2020-05-23] MEDS: QUEtiapine 100 MG Tablet PO (21:33)
[2020-05-23 21:41] LABS: Bedside Glucose 144 mg/dL (70-110)
[2020-05-24] VITALS (7 sets, daily range): BP systolic 114–130; BP diastolic 70–99; PULSE 107–120; RESP 16–20; TEMP 36.9–37.3; O2SAT 96–100
[2020-05-24] MEDS: busPIRone 5 MG Tablet PO ×2 (06:53→14:24)
[2020-05-24 07:00] LABS: Bedside Glucose 128 mg/dL (70-110)
--- NOTE | 2020-05-24 08:15 | NURSING ---
This nurse assisted pt in brushing teeth and set up with breakfast.
[2020-05-24] MEDS: Acetaminophen 325 MG Tablet 650 MG PO ×2 (08:42→17:11)
[2020-05-24] MEDS: QUEtiapine 100 MG Tablet PO (10:12)
[2020-05-24] MEDS: APIXABAN 5 MG TABLET PO (10:13)
[2020-05-24] MEDS: Mycophenolate Mofetil 250 MG Capsule 500 MG PO (10:13)
[2020-05-24] MEDS: Pyridostigmine Bromide 60 MG Tablet 30 MG PO (10:14)
[2020-05-24] MEDS: FLUoxetine 20 MG Capsule 40 MG PO (10:14)
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
--- NOTE | 2020-05-24 11:43 | NURSING ---
This nurse attempted to give pt a bath. This nurse was able to wash his thighs, legs and feet before pt refused bath anymore. Stop it now! This nurse stopped pt care since pt getting agitated.
--- NOTE | 2020-05-24 11:51 | NURSING ---
pt fixated for the last few hours on calling . Getting more agitated. This nurse assisted in helping make the phone call again. Pt keeps switching the phone between his right ear and left ear. pt is constantly moving. Getting up and down from the bed, Turning on his Right side then to his Left side. Putting blankets up, pulling them off. Pt Continues to be very restless.
--- NOTE | 2020-05-24 12:01 | NURSING ---
Spoke with [place] re: [facility] placement. Stated that the doctor has declined to accept the patient based on the CXR from 05/20 and the fact that this facility has no medical support available, only [facility] care. they voiced concern that if the patient were to decompensate medically, they would be unable to manage him in house. Dr. Emily valdes.
--- NOTE | 2020-05-24 13:36 | PCM.DC ---
- Discharge Diagnoses Current Active Problems: Current Active and Chronic Problems Delirium (Chronic) Adult failure to thrive (Acute) You will use the following diet at home:: Calorie/Carbohydrate Controlled (specify 1200, 1400, etc) Allergies/Adverse Reactions: Allergies latex Allergy (Verified 05/20/20 19:10) Rash levofloxacin [From Levaquin] Allergy (Verified 05/20/20 19:10) PT UNABLE TO RESPOND-NEEDS F/U Quinolones Allergy (Verified 05/20/20 19:10) PT UNABLE TO RESPOND-NEEDS F/U Medications to take at Discharge Fluoxetine HCl 40 mg PO DAILY 02/15/20 Glimepiride 2 mg PO DAILY 02/15/20 Metformin HCl 1,000 mg PO BID 02/15/20 Apixaban [Eliquis] 5 mg PO BID 05/21/20 Aspirin [Aspirin, Baby] 81 mg PO DAILY@0800 05/21/20 Atorvastatin Calcium [Lipitor] 80 mg PO QHS 05/21/20 Buspirone HCl 5 mg PO TID 05/21/20 Cholecalciferol (Vitamin D3) [Vitamin D3] 1 tab PO DAILY 05/21/20 Diclofenac Sodium [Voltaren] 2 gm TOPICAL TID 05/21/20 Docusate Sodium 100 mg PO BID PRN PRN 05/21/20 Famotidine 20 mg PO BID 05/21/20 Guaifenesin [Robitussin] 10 ml PO Q4H PRN PRN 05/21/20 Ipratropium/Albuterol Sulfate [Duoneb] 3 ml INHALATION Q6HWA.RT 05/21/20 Ketotifen Fumarate 1 drp EACH EYE BID 05/21/20 Lactobacillus Rhamnosus GG [Culturelle] 1 ea PO BID 05/21/20 Metoprolol Tartrate 25 mg PO BID 05/21/20 Mycophenolate Mofetil 500 mg PO BID 05/21/20 Potassium Chloride [K-Dur] 20 meq PO DAILY 05/21/20 Pyridostigmine [place] 30 mg PO BID 05/21/20 Thiamine HCl 100 mg PO DAILY 05/21/20 Acetaminophen [Tylenol Tablet] 650 mg PO Q6H PRN PRN tablet 05/24/20 Quetiapine Fumarate [Seroquel] 100 mg PO BID tablet 05/24/20 Primary Care Physician: Caitlin Landaverde MD [Primary Care Provider] - Within 2 Weeks Test Results: Test results from this visit will be discussed in further detail at your follow-up appointment, if applicable. Please Follow Up With: neurology 2-4 weeks Proposed Discharge Date: 05/24/20
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
[2020-05-24] MEDS: Metoprolol Tartrate 25 MG Tablet PO (14:24)
--- NOTE | 2020-05-24 16:24 | NURSING ---
Pt not listening and getting more agitated and restless with this nurse. This nurse was trying to make conversation with pt and he informed me to oh shut up. I don't want to hear from you. pt is repeatedly asking for a blow dryer despite being told we dont have one. Points to bathroom says he sees one in there.
--- NOTE | 2020-05-24 16:47 | NURSING ---
SOB w.exertion, Spo2 checked and it was 100% on RA. Will continue to monitor.
[2020-05-24 17:10] LABS: Bedside Glucose 154 mg/dL (70-110)
--- NOTE | 2020-05-24 17:30 | EKG12_ITS ---
Test Reason : Blood Pressure : / mmHG Vent. Rate : 089 BPM Atrial Rate : 102 BPM P-R Int : 000 ms QRS Dur : 094 ms QT Int : 440 ms P-R-T Axes : 000 -43 030 degrees QTc Int : 535 ms Atrial fibrillation /Flutter Left axis deviation Low voltage QRS Inferior infarct , age undetermined , cannot be excluded Prolonged QT Abnormal ECG Confirmed by ABRAN GONZALEZ, CHRISTOPHER ([id number]), avid editor NEETA GUTHRIE ([id number]) on 05/27/2020 9:56:07 AM Referred By: Christopher Sahni Confirmed By:CHRISTOPHER OSULLIVAN MD
[2020-05-24] MEDS: Haloperidol Lactate 5 MG/ML Vial 2 MG IM (17:56)
== END 2020-05-24 18:27 | DRG 884 ==
LOC: ED 20:54 → MS3 05-21 04:06 → ICU 05-22 16:15 → MS3 05-23 13:23
PROVIDERS: Admitting Provider Hospitalist; Emergency Provider Emergency Medicine; PCP Student in an Organized Health Care Education/Training Program; Referring Provider Family Medicine
DX: R45.1 Restlessness and agitation (principal); S22.038A Other fracture of third thoracic vertebra, initial encounter for closed fracture; S22.048A Other fracture of fourth thoracic vertebra, initial encounter for closed fracture; R62.7 Adult failure to thrive; G70.00 Myasthenia gravis without (acute) exacerbation; I10 Essential (primary) hypertension; E78.5 Hyperlipidemia, unspecified; E11.9 Type 2 diabetes mellitus without complications; Z86.73 Personal history of transient ischemic attack (TIA), and cerebral infarction without residual deficits; Z79.02 Long term (current) use of antithrombotics/antiplatelets; Z79.899 Other long term (current) drug therapy; Z79.84 Long term (current) use of oral hypoglycemic drugs; W22.01XA Walked into wall, initial encounter; Y93.89 Activity, other specified; Y92.009 Unspecified place in unspecified non-institutional (private) residence as the place of occurrence of the external cause; Y99.8 Other external cause status; E87.6 Hypokalemia; W07.XXXA Fall from chair, initial encounter; Y92.230 Patient room in hospital as the place of occurrence of the external cause; I48.91 Unspecified atrial fibrillation
CPT/HCPCS: 36415; 70450; 70486; 71045; 72125; 72141; 73100; 80048; 80053; 81001; 82533; 82607; 82962; 84443; 84484; 85025; 87426; 93005; 99285; P9612; A4216; J3486